=== PATIENT | female | born 1970 | race African-American/Black ===

== ENCOUNTER 2017-10-27 11:15 | Emergency (ER) | payer OTHER ==
[~2017-10-27] VITALS: Ht 149.9 cm; Wt 104.3 kg
[~2017-10-27 11:15] MED LIST: BENTYL10 MG PO; BYSTOLIC 5 MG5 M1 PO; CHLORTHALIDONE50 MG PO; FLOMAX0.4 MG PO; NIFEDIPINE ER60 M1 PO; PREDNISONE 20 M20 M1 PO; TORSEMIDE20 MG PO; ULTRAM50 MG PO; VALSARTAN-HCTZ1 EAC3 PO; VENTOLIN HFA 1818 GM INH; WELLBUTRIN XL150 MG PO; ZPAK PO
[2017-10-27] MEDS ORDERED: COREG CR10 MG PO (11:28)
[2017-10-27] MEDS ORDERED: NORVASC5 M1 PO (11:28)
[2017-10-27] MEDS ORDERED: TERAZOSIN HCL5 MG PO (11:30)
[2017-10-27] MEDS ORDERED: ACTOS 30 MG TAB30 MG PO (11:30)
[2017-10-27] MEDS ORDERED: LIPITOR 20 MG T20 M1 PO (11:31)
[2017-10-27 11:39] LABS: ABSOLUTE BASOPHILS 0.1 thou/uL (0.0-0.2); ABSOLUTE EOSINOPHILS 0.3 thou/uL (0.0-0.7); ABSOLUTE LYMPHOCYTES 2.9 thou/uL (0.8-5.3); ABSOLUTE MONOCYTES 0.6 thou/uL (0.0-1.2); ABSOLUTE NEUTROPHILS 4.4 thou/uL (1.6-8.1); BASOPHILS 0.7 %; EOSINOPHILS 3.2 %; HEMATOCRIT 38.5 % (37.0-47.0); HEMOGLOBIN 12.7 gm/dL (12.0-15.0); LYMPHOCYTES 35.3 %; MCH 29.5 pg (26.0-34.0); MCHC 33.1 g/dL (28.0-37.0); MCV 89.2 fL (80.0-100.0); MONOCYTES 7.1 %; MPV 7.9 fl. (7.2-11.1); NUCLEATED RBCS 0 /100WBC; PLATELET COUNT* 272 thou/uL (150-400); POLYS 53.7 %; RBC 4.32 mil/uL (4.20-5.00); RDW-CV 14.8 % (10.5-14.5); WBC 8.3 thou/uL (4.0-11.0)
[2017-10-27 11:45] LABS: ANION GAP 1 mmol/L (7-16); BUN 26 mg/dL (7-18); CALCIUM 8.9 mg/dL (8.5-10.1); CHLORIDE 102 mmol/L (98-107); CO2 32 mmol/L (21-32); CREATININE 1.8 mg/dL (0.6-1.3); GLUCOSE 110 mg/dL (70-99); POTASSIUM 3.8 mmol/L (3.5-5.1); SODIUM 135 mmol/L (136-145)
[2017-10-27 11:55] LABS: ALBUMIN 3.2 g/dL (3.4-5.0); ALKALINE PHOSPHATASE 72 U/L (46-116); NT-PRO BRAIN NAT PEPTIDE 83 pg/mL (<300); SGOT 12 U/L (15-37); SGPT 20 U/L (30-65); TOTAL BILIRUBIN 0.5 mg/dL (<0.1-1.0); TOTAL PROTEIN 7.8 g/dL (6.4-8.2); TROPONIN-I LEVEL <0.06 ng/mL (<0.06)
[2017-10-27 11:57] LABS: APTT 26.5 Seconds (25.0-31.3)
[2017-10-27 15:05] VITALS: BP 134/95
--- NOTE | 2017-10-27 16:43 | EKG ---
[place] [address] ELECTROCARDIOGRAM REPORT Name: DEMETRIMATI D [id number] Admission: 10/27/17 Attend Phys: Discharge: 10/27/17 Date of : 68 Report #: [id number] THIS REPORT FOR: //name// [facility] ED Test Date: 2017-10-27 Test Time: 11:25:30 Pat Name: MATI MOSQUERA Department: Room: Gender: F General Maintenance Helper: NUNU : 1970 Requested By: Tamiko Landin Order Number: [id number] Reading MD: Leif Cruz Measurements Intervals [place] Rate: 84 P: 43 VA: 168 QRS: -3 QRSD: 92 T: 34 QT: 372 QTc: 440 Interpretive Statements Sinus rhythm Nonspecific t wave changes Electronically Signed On 10-27-2017 16:43:48 CDT by Leif Cruz [email or web address] <ELECTRONICALLY SIGNED> By: Leif Cruz MD, [facility] 10/27/17 1643 1125 1125 Leif Cruz MD, FACC /EPI
== END 2017-10-27 15:06 | disposition home or self-care (01) ==
LOC: M.ERS 11:15
PROVIDERS: Nurse Practitioner Family
DX: R07.89 Other chest pain (principal); R06.02 Shortness of breath; R51 Headache; I12.9 Hypertensive chronic kidney disease with stage 1 through stage 4 chronic kidney disease, or unspecified chronic kidney disease; E11.22 Type 2 diabetes mellitus with diabetic chronic kidney disease; N18.3 Chronic kidney disease, stage 3 (moderate); Z90.710 Acquired absence of both cervix and uterus; Z88.5 Allergy status to narcotic agent

== ENCOUNTER 2017-12-28 20:58 | Emergency (ER) | payer OTHER ==
[~2017-12-28] VITALS: Ht 149.9 cm; Wt 98.4 kg
[~2017-12-28 20:58] MED LIST changes: +ACTOS 30 MG TAB30 MG PO; +COREG CR10 MG PO; +LIPITOR 20 MG T20 M1 PO; +NORVASC5 M1 PO; +TERAZOSIN HCL5 MG PO
[2017-12-28] MEDS ORDERED: LASIX 20 MG TAB20 MG PO (21:08)
[2017-12-28 21:45] LABS: ABSOLUTE BASOPHILS 0.1 thou/uL (0.0-0.2); ABSOLUTE EOSINOPHILS 0.1 thou/uL (0.0-0.7); ABSOLUTE LYMPHOCYTES 2.3 thou/uL (0.8-5.3); ABSOLUTE MONOCYTES 0.9 thou/uL (0.0-1.2); BASOPHILS 0.5 %; EOSINOPHILS 1.1 %; HEMATOCRIT 36.8 % (37.0-47.0); HEMOGLOBIN 11.8 gm/dL (12.0-15.0); LYMPHOCYTES 18.3 %; MCH 29.2 pg (26.0-34.0); MCV 91.2 fL (80.0-100.0); MONOCYTES 7.3 %; MPV 8.3 fl. (7.2-11.1); NUCLEATED RBCS 0 /100WBC; PLATELET COUNT* 252 thou/uL (150-400); POLYS 72.8 %; RBC 4.04 mil/uL (4.20-5.00); RDW-CV 14.2 % (10.5-14.5); WBC 12.3 thou/uL (4.0-11.0)
[2017-12-28 21:52] LABS: CALCIUM 8.4 mg/dL (8.5-10.1); CREATININE 1.4 mg/dL (0.6-1.3); POTASSIUM 3.5 mmol/L (3.5-5.1)
[2017-12-28 21:56] LABS: TOTAL BILIRUBIN 0.4 mg/dL (<0.1-1.0); TOTAL PROTEIN 7.4 g/dL (6.4-8.2)
[2017-12-28] MEDS ORDERED: AUGMENTIN 875-1 EACH PO (22:49)
[2017-12-28] MEDS ORDERED: NORCO 5-325 TA1 EAC1 PO (22:49)
[2017-12-28] MEDS ORDERED: FLAGYL500 M1 PO (22:49)
[2017-12-28] MEDS ORDERED: PROMETHAZINE HC25 M1 PO (22:52)
[2017-12-28 23:12] VITALS: BP 135/93
== END 2017-12-28 23:13 | disposition home or self-care (01) ==
LOC: M.ERS 20:58
PROVIDERS: Nurse Practitioner
DX: K57.92 Diverticulitis of intestine, part unspecified, without perforation or abscess without bleeding (principal)